=== PATIENT | female | born 1940 | race Asian ===

== ENCOUNTER 2018-04-16 16:29 | Observation (INO) | payer OTHER ==
[2018-04-16] MEDS: ASPIRIN 325 MG TAB PO (18:13)
[2018-04-16 18:15] LABS: ADD MAN DIFF? NO
[2018-04-16 18:16] LABS: BASOPHIL # 0.1 10^3/ul (0.0-0.1); BASOPHILS % 0.7 % (0.0-2.0); EOSINOPHILS # 0.2 10^3/ul (0.0-0.5); EOSINOPHILS % 3.1 % (0.0-7.0); HEMATOCRIT 47.2 % (37.0-47.0); HEMOGLOBIN 15.7 g/dl (12.0-16.0); LYMPHOCYTES # 2.6 10^3/ul (0.8-2.9); MEAN CORPUSCULAR HEMOGLOBIN 31.8 pg (29.0-33.0); MEAN CORPUSCULAR HGB CONC 33.3 g/dl (32.0-37.0); MEAN CORPUSCULAR VOLUME 95.7 fl (82.0-101.0); MEAN PLATELET VOLUME 10.2 fl (7.4-10.4); MONOCYTE # 0.7 10^3/ul (0.3-0.9); MONOCYTES % 9.7 % (0.0-11.0); NEUTROPHIL # 3.5 10^3/ul (1.6-7.5); NEUTROPHILS % 49.2 % (39.0-77.0); PLATELET COUNT 211 10^3/UL (140-415); RED BLOOD COUNT 4.93 10^6/ul (4.20-5.40); RED CELL DISTRIBUTION WIDTH 13.5 % (11.5-14.5)
[2018-04-16 18:16] LABS: WHITE BLOOD COUNT 7.1 10^3/ul (4.8-10.8)
[2018-04-16 18:35] LABS: ANION GAP 18 (8-16); BLOOD UREA NITROGEN 26 mg/dl (7-20); CALCIUM 10.6 mg/dl (8.4-10.2); CARBON DIOXIDE 25 mmol/L (21-31); CHLORIDE 106 mmol/L (97-110); CREATININE 0.83 mg/dl (0.44-1.00); GLUCOSE 144 mg/dl (70-220); POTASSIUM 3.9 mmol/L (3.5-5.1); SODIUM 145 mmol/L (135-144)
[2018-04-16 18:53] LABS: FREE THYROXINE INDEX (Calc) 1.28 ug/ml (0.65-3.89); T3 UPTAKE 29.7 % (23.5-40.5); T4 (THYROXINE) 4.3 ug/dl (5.5-11.0)
[2018-04-16 18:56] LABS: TROPONIN-I < 0.010 ng/ml (0.000-0.120)
[2018-04-16] MEDS ORDERED: ACETAMINOPHEN 325 MG TAB PO (20:00)
[2018-04-16] MEDS ORDERED: ONDANSETRON 4 MG INJ IV (20:00)
[2018-04-17] MEDS ORDERED: NACL 0.9% 3 ML SYG IV (00:30)
[2018-04-17] MEDS ORDERED: morphine 2 MG INJ IV (00:30)
[2018-04-17] MEDS ORDERED: ACETAMINOPHEN 325 MG TAB PO (00:30)
[2018-04-17] MEDS ORDERED: NITROGLYCERIN (SL) 0.4 MG TAB SL (00:30)
[2018-04-17] MEDS ORDERED: ALBUTEROL/IPRATROPIUM (NEB) 3 ML AMP HHN (00:30)
[2018-04-17] MEDS ORDERED: ONDANSETRON 4 MG INJ IV (00:30)
[2018-04-17 01:11] LABS: CREATINE KINASE 75 IU/L (23-200)
[2018-04-17 01:24] LABS: CK INDEX 1.7; CK-MB 1.28 ng/ml (0.0-2.4)
[2018-04-17 01:33] LABS: TROPONIN-I < 0.010 ng/ml (0.000-0.120)
[2018-04-17 07:01] LABS: ADD MAN DIFF? NO
[2018-04-17 07:04] LABS: BASOPHIL # 0.1 10^3/ul (0.0-0.1); BASOPHILS % 0.7 % (0.0-2.0); EOSINOPHILS # 0.4 10^3/ul (0.0-0.5); EOSINOPHILS % 5.8 % (0.0-7.0); HEMATOCRIT 48.1 % (37.0-47.0); HEMOGLOBIN 15.8 g/dl (12.0-16.0); LYMPHOCYTES # 2.6 10^3/ul (0.8-2.9); LYMPHOCYTES % 38.9 % (15.0-51.0); MEAN CORPUSCULAR HEMOGLOBIN 31.5 pg (29.0-33.0); MEAN CORPUSCULAR HGB CONC 32.8 g/dl (32.0-37.0); MEAN PLATELET VOLUME 10.5 fl (7.4-10.4); MONOCYTE # 0.7 10^3/ul (0.3-0.9); NEUTROPHILS % 44.5 % (39.0-77.0); PLATELET COUNT 192 10^3/UL (140-415); RED BLOOD COUNT 5.01 10^6/ul (4.20-5.40); RED CELL DISTRIBUTION WIDTH 13.7 % (11.5-14.5)
[2018-04-17 07:04] LABS: WHITE BLOOD COUNT 6.7 10^3/ul (4.8-10.8)
[2018-04-17 07:27] LABS: CREATINE KINASE 83 IU/L (23-200)
[2018-04-17 07:32] LABS: ALANINE AMINOTRANSFERASE 45 IU/L (13-69); ALBUMIN 4.7 g/dl (3.3-4.9); ALKALINE PHOSPHATASE 76 IU/L (42-121); ANION GAP 18 (8-16); ASPARTATE AMINO TRANSFERASE 64 IU/L (15-46); BILIRUBIN,INDIRECT 0.7 mg/dl (0-1.1); BILIRUBIN,TOTAL 0.7 mg/dl (0.2-1.3); BLOOD UREA NITROGEN 23 mg/dl (7-20); CALCIUM 9.6 mg/dl (8.4-10.2); CARBON DIOXIDE 23 mmol/L (21-31); CHLORIDE 105 mmol/L (97-110); CHOL/HDL RATIO 3.9 RATIO; CHOLESTEROL 143 mg/dl (100-200); GLUCOSE 131 mg/dl (70-220); HDL CHOLESTEROL 36 mg/dl (33-92); LDL CHOLESTEROL,CALCULATED 65 mg/dl; MAGNESIUM 1.8 mg/dl (1.7-2.5); PHOSPHORUS 4.1 mg/dl (2.5-4.9); SODIUM 142 mmol/L (135-144); TOTAL PROTEIN 8.6 g/dl (6.1-8.1); TRIGLYCERIDES 209 mg/dl (0-149)
[2018-04-17 07:37] LABS: CK INDEX 1.8; CK-MB 1.48 ng/ml (0.0-2.4); TROPONIN-I 0.011 ng/ml (0.000-0.120)
[2018-04-17 08:28] LABS: HEMOGLOBIN A1C 6.6 % (0-5.9)
[2018-04-17] MEDS: DILTIAZEM (CD) 180 MG CAP PO (08:34)
[2018-04-17] MEDS: ALLOPURINOL 100 MG TAB PO (08:34)
[2018-04-17] MEDS: METOPROLOL (XL) 50 MG TAB PO ×2 (08:35→21:34)
[2018-04-17] MEDS: GEMFIBROZIL 600 MG TAB PO (08:35)
[2018-04-17] MEDS: APIXABAN 5 MG TABLET PO ×2 (08:35→21:34)
[2018-04-17] MEDS: METHIMAZOLE 5 MG TAB PO (08:35)
[2018-04-17] MEDS ORDERED: morphine LIQ (10 MG/5 ML) CUP PO (15:00)
[2018-04-18 06:51] LABS: ADD MAN DIFF? NO
[2018-04-18 07:08] LABS: WHITE BLOOD COUNT 6.6 10^3/ul (4.8-10.8)
[2018-04-18 07:08] LABS: BASOPHIL # 0.1 10^3/ul (0.0-0.1); BASOPHILS % 0.8 % (0.0-2.0); EOSINOPHILS # 0.3 10^3/ul (0.0-0.5); EOSINOPHILS % 5.2 % (0.0-7.0); HEMATOCRIT 48.4 % (37.0-47.0); LYMPHOCYTES # 2.6 10^3/ul (0.8-2.9); LYMPHOCYTES % 39.3 % (15.0-51.0); MEAN CORPUSCULAR HEMOGLOBIN 31.9 pg (29.0-33.0); MEAN CORPUSCULAR HGB CONC 33.1 g/dl (32.0-37.0); MEAN CORPUSCULAR VOLUME 96.6 fl (82.0-101.0); MEAN PLATELET VOLUME 10.6 fl (7.4-10.4); MONOCYTE # 0.6 10^3/ul (0.3-0.9); MONOCYTES % 9.1 % (0.0-11.0); NEUTROPHILS % 45.3 % (39.0-77.0); PLATELET COUNT 203 10^3/UL (140-415); RED BLOOD COUNT 5.01 10^6/ul (4.20-5.40); RED CELL DISTRIBUTION WIDTH 13.5 % (11.5-14.5)
[2018-04-18 07:28] LABS: ALANINE AMINOTRANSFERASE 52 IU/L (13-69); ALBUMIN 4.5 g/dl (3.3-4.9); ALBUMIN/GLOBULIN RATIO 1.28; ALKALINE PHOSPHATASE 70 IU/L (42-121); ANION GAP 12 (8-16); ASPARTATE AMINO TRANSFERASE 65 IU/L (15-46); BILIRUBIN,INDIRECT 0.8 mg/dl (0-1.1); BILIRUBIN,TOTAL 0.8 mg/dl (0.2-1.3); BLOOD UREA NITROGEN 19 mg/dl (7-20); CALCIUM 9.7 mg/dl (8.4-10.2); CARBON DIOXIDE 26 mmol/L (21-31); CHLORIDE 106 mmol/L (97-110); CREATININE 0.68 mg/dl (0.44-1.00); GLUCOSE 135 mg/dl (70-220); POTASSIUM 4.2 mmol/L (3.5-5.1); SODIUM 140 mmol/L (135-144)
[2018-04-18] MEDS: APIXABAN 5 MG TABLET PO (08:37)
[2018-04-18] MEDS: GEMFIBROZIL 600 MG TAB PO (08:37)
[2018-04-18] MEDS: METOPROLOL (XL) 50 MG TAB PO (08:38)
[2018-04-18] MEDS: DILTIAZEM (CD) 180 MG CAP PO (08:38)
[2018-04-18] MEDS: ALLOPURINOL 100 MG TAB PO (08:38)
[2018-04-18] MEDS: METHIMAZOLE 5 MG TAB PO (08:39)
== END 2018-04-18 11:26 | disposition home or self-care (01) ==
LOC: E/R 16:29 → MS4 19:49
DX: R07.9 Chest pain, unspecified (principal); I42.9 Cardiomyopathy, unspecified; I48.91 Unspecified atrial fibrillation; E05.00 Thyrotoxicosis with diffuse goiter without thyrotoxic crisis or storm; I11.0 Hypertensive heart disease with heart failure; I50.9 Heart failure, unspecified; Z79.01 Long term (current) use of anticoagulants
CPT/HCPCS: 36415; 71045; 80048; 80053; 80061; 82550; 82553; 83036; 83735; 84100; 84436; 84443; 84479; 84484; 85025; 93005; 93306; 99285-25; G0378